=== PATIENT | female | born 1950 | race African-American/Black ===

== ENCOUNTER 2018-08-19 10:37 | Inpatient (IN) | payer OTHER, MEDICARE ==
[~2018-08-19] VITALS: Ht 160 cm; Wt 70.3 kg
[2018-08-19 10:52] VITALS: BP_SYST 167
[2018-08-19] MEDS ORDERED: NACL 0.9% 1,000 ML IV ONE (11:30)
[2018-08-19] MEDS ORDERED: KETOROLAC TROMETHAMINE 30 MG VIAL IVP ONE (11:30)
[2018-08-19 11:31] LABS: BASOPHILS # (AUTO) 0.1 K/uL (0.0-0.2); EOSINOPHILS # (AUTO) 0.2 K/uL (0.0-0.4); EOSINOPHILS % (AUTO) 1.6 % (0.0-4.0); HEMATOCRIT 36.3 % (36-48); HEMOGLOBIN 12.4 g/dL (12.0-16.0); LYMPHOCYTES # (AUTO) 1.8 K/uL (1.0-5.5); LYMPHOCYTES % (AUTO) 12.6 % (20.5-51.5); MEAN CORPUSCULAR HEMOGLOBIN 33 pg (27-31); MEAN CORPUSCULAR HGB CONC 34 % (32-36); MEAN CORPUSCULAR VOLUME 97 fL (79.0-98.0); MONOCYTES # (AUTO) 0.7 K/uL (0.0-1.0); MONOCYTES % (AUTO) 5.1 % (1.7-9.3); NEUTROPHILS # (AUTO) 11.1 K/uL (1.8-7.7); NEUTROPHILS % (AUTO) 79.7 % (40.0-70.0); PLATELET COUNT (AUTO) 516 K/uL (130-430); RED BLOOD CELL COUNT(AUTO) 3.73 MIL/uL (4.2-6.2); RED CELL DISTRIBUTION WIDTH 11.4 % (9.0-15.0); WHITE BLOOD COUNT (AUTO) 13.9 K/uL (4.8-10.8)
[2018-08-19 11:39] LABS: CALCIUM 9.5 mg/dL (8.4-11.0); CREATININE 0.84 mg/dL (0.55-1.30); POTASSIUM 3.2 mmol/L (3.5-5.1)
[2018-08-19 11:44] LABS: BILIRUBIN,URINE NEGATIVE (NEGATIVE); CLARITY/URINE SL HAZY (CLEAR); COLOR,URINE YELLOW (YELLOW); GLUCOSE,URINE NEGATIVE (NEGATIVE); KETONES,URINE NEGATIVE (NEGATIVE); LEUKOCYTE ESTERASE ,URINE NEGATIVE (NEGATIVE); NITRITE, URINE NEGATIVE (NEGATIVE); PROTEIN URINE TRACE (NEGATIVE); UROBILINOGEN,URINE 0.2 (0.2-1.0)
[2018-08-19 11:45] LABS: ALBUMIN 2.8 g/dL (3.4-4.8); TOTAL BILIRUBIN 0.3 mg/dL (0.0-1.0)
[2018-08-19 11:57] LABS: BLOOD, URINE TRACE (NEGATIVE)
[2018-08-19 12:15] LABS: BACTERIA,URINE FEW /HPF (None Seen); WBC,URINE 0-3 /HPF (0-3)
[2018-08-19] MEDS ORDERED: MORPHINE 4 MG/ML INJ. SYRINGE IVP ONE ×2 (12:15→13:45)
[2018-08-19 12:16] LABS: INR 0.9 (0.8-1.2); PROTHROMBIN TIME 9.6 SECS (9.5-12.5)
[2018-08-19] MEDS ORDERED: ONDANSETRON HCL 4 MG/2 ML VIAL ONE (12:29)
[2018-08-19] MEDS ORDERED: hydrALAZINE HCL 20 MG/ML VIAL IVP ONE (12:30)
[2018-08-19] MEDS ORDERED: ONDANSETRON HCL 4 MG/2 ML VIAL IVP ONE ×2 (12:30→13:45)
[2018-08-19] MEDS ORDERED: LIDOCAINE 1%, 20 ML MDV 20 ML ONE (12:32)
[2018-08-19] MEDS ORDERED: PHEDM120 PO (12:51)
[2018-08-19] MEDS ORDERED: ACYCLOVIR IV 500 MG in D5W 100 ML IV ONE (13:45)
[2018-08-19] MEDS ORDERED: VANCOMYCIN HCL 1,000 MG in NS 250 ML IV ONE (13:45)
[2018-08-19] MEDS ORDERED: AMPICILLIN SODIUM 1 GM VIAL IV ONE (13:45)
[2018-08-19] MEDS ORDERED: cefTRIAXone 1 GM in D5W 50 ML IV ONE (13:45)
[2018-08-19] MEDS ORDERED: VANCOMYCIN HCL 1000 MG/VIAL IV ONE (13:52)
[2018-08-19] MEDS ORDERED: cefTRIAXone 1 GM VIAL ONE (13:52)
[2018-08-19] MEDS ORDERED: ACYCLOVIR SODIUM 50 MG/ML VIAL IV ONE (13:53)
[2018-08-19] MEDS ORDERED: DEXAMETHASONE SOD PHOSPHATE 10 MG/ML VIAL IVP ONE (14:15)
[2018-08-19] MEDS ORDERED: cefTRIAXone 1 GM in D5W 50 ML IV SCH (15:00)
[2018-08-19 15:08] VITALS: BP_SYST 179
[2018-08-19 15:19] VITALS: BP_SYST 205
[2018-08-19 15:26] LABS: CSF GLUCOSE 61 mg/dL (40-70)
[2018-08-19 15:48] LABS: CSF PROTEIN 41 mg/dL (15-45)
[2018-08-19] MEDS ORDERED: hydrALAZINE HCL 20 MG/ML VIAL ONE (16:23)
[2018-08-19] MEDS: NACL 0.9% 1,000 ML IV SCH ×2 (16:26→23:09)
[2018-08-19 17:03] LABS: CSF APPEARANCE CLEAR (CLEAR); CSF COLOR COLORLESS (COLORLESS); CSF RED BLOOD CELL COUNT 43 /uL (0-0); CSF TUBE NUMBER 3; CSF VOLUME 7.5 mL
[2018-08-19 17:04] LABS: CSF WHITE BLOOD CELL COUNT 1 /uL (0-5)
[2018-08-19 17:55] VITALS: BP_SYST 166
[2018-08-19] MEDS ORDERED: AMPICILLIN SODIUM 1 GM in NS 50 ML IV SCH (18:00)
[2018-08-19] MEDS ORDERED: KCL 10 mEq in 50 mL (PREMIX) 50 ML IV ONE (18:15)
[2018-08-19 20:00] VITALS: BP_SYST 152
[2018-08-19] MEDS: DOXYCYCLINE HYCLATE 100 MG CAPSULE PO SCH (20:59)
[2018-08-19] MEDS ORDERED: ONDANSETRON HCL 4 MG/2 ML VIAL IVP PRN (22:30)
[2018-08-19] MEDS ORDERED: VANCOMYCIN HCL 1,500 MG in NS 250 ML IV SCH (23:00)
[2018-08-19] MEDS: hydrALAZINE HCL 20 MG/ML VIAL IVP PRN (23:23)
[2018-08-19] MEDS: traMADol HCL HCL 50 MG TABLET (ULTRAM) PO PRN (23:24)
[2018-08-20 00:47] VITALS: BP_SYST 168
[2018-08-20 06:45] VITALS: BP_SYST 188
[2018-08-20] MEDS: hydrALAZINE HCL 20 MG/ML VIAL IVP PRN ×2 (06:45→21:44)
[2018-08-20 07:38] LABS: ALBUMIN 2.3 g/dL (3.4-4.8); CALCIUM 9.4 mg/dL (8.4-11.0); CREATININE 0.78 mg/dL (0.55-1.30); POTASSIUM 3.5 mmol/L (3.5-5.1); TOTAL BILIRUBIN 0.1 mg/dL (0.0-1.0)
[2018-08-20 07:58] LABS: BASOPHILS # (AUTO) 0.1 K/uL (0.0-0.2); BASOPHILS % (AUTO) 0.7 % (0.0-2.0); EOSINOPHILS % (AUTO) 0.1 % (0.0-4.0); HEMATOCRIT 32.8 % (36-48); HEMOGLOBIN 11.7 g/dL (12.0-16.0); LYMPHOCYTES # (AUTO) 1.5 K/uL (1.0-5.5); LYMPHOCYTES % (AUTO) 8.5 % (20.5-51.5); MEAN CORPUSCULAR HEMOGLOBIN 36 pg (27-31); MEAN CORPUSCULAR HGB CONC 36 % (32-36); MEAN CORPUSCULAR VOLUME 100 fL (79.0-98.0); MONOCYTES # (AUTO) 0.6 K/uL (0.0-1.0); MONOCYTES % (AUTO) 3.5 % (1.7-9.3); NEUTROPHILS # (AUTO) 15.7 K/uL (1.8-7.7); NEUTROPHILS % (AUTO) 87.2 % (40.0-70.0); PLATELET COUNT (AUTO) 489 K/uL (130-430); RED BLOOD CELL COUNT(AUTO) 3.29 MIL/uL (4.2-6.2); RED CELL DISTRIBUTION WIDTH 11.5 % (9.0-15.0)
[2018-08-20 08:00] VITALS: BP_SYST 163
[2018-08-20 08:00] LABS: WHITE BLOOD COUNT (AUTO) 17.9 K/uL (4.8-10.8)
[2018-08-20] MEDS: BENAZEPRIL HCL 20 MG TABLET (LOTENSIN) PO SCH (08:11)
[2018-08-20] MEDS: DOXYCYCLINE HYCLATE 100 MG CAPSULE PO SCH ×2 (08:11→21:44)
[2018-08-20] MEDS ORDERED: FLUTICASONE 100 mCg/SALMETEROL 50 mCg DISKUS W.DEV INH SCH (09:00)
[2018-08-20] MEDS: ALBUTEROL SULFATE 0.083% 2.5 MG/3 ML VIAL.NEB INH PRN ×2 (09:17→16:21)
[2018-08-20] MEDS: NACL 0.9% 1,000 ML IV SCH (11:07)
[2018-08-20 11:25] VITALS: BP_SYST 157
[2018-08-20] MEDS: PROMETHAZINE 6.25 MG/ CODEINE 10 MG/ 5 ML PO PRN ×2 (13:01→22:19)
[2018-08-20] MEDS: VANCOMYCIN HCL 1 GM/NS PREMIX 250 ML IV SCH (13:01)
[2018-08-20 15:39] VITALS: BP_SYST 142
[2018-08-20] MEDS: traMADol HCL HCL 50 MG TABLET (ULTRAM) PO PRN ×2 (16:13→21:45)
[2018-08-20 20:00] VITALS: BP_SYST 183
[2018-08-21] VITALS: BP_SYST 162
[2018-08-21] MEDS: VANCOMYCIN HCL 1 GM/NS PREMIX 250 ML IV SCH (01:29)
[2018-08-21] MEDS: NACL 0.9% 1,000 ML IV SCH ×2 (01:30→06:15)
[2018-08-21] MEDS: PROMETHAZINE 6.25 MG/ CODEINE 10 MG/ 5 ML PO PRN ×3 (02:54→12:19)
[2018-08-21 07:56] VITALS: BP_SYST 162
[2018-08-21] MEDS: traMADol HCL HCL 50 MG TABLET (ULTRAM) PO PRN (07:59)
[2018-08-21] MEDS: BENAZEPRIL HCL 20 MG TABLET (LOTENSIN) PO SCH (07:59)
[2018-08-21] MEDS: DOXYCYCLINE HYCLATE 100 MG CAPSULE PO SCH (07:59)
[2018-08-21 10:26] VITALS: BP_SYST 166
[2018-08-21 12:00] VITALS: BP_SYST 167
[2018-08-21] MEDS: hydrALAZINE HCL 20 MG/ML VIAL IVP PRN (12:21)
[2018-08-21] MEDS ORDERED: HYDR-4037 PO (12:46)
[2018-08-21] MEDS ORDERED: ROCPM1 IV (12:47)
[2018-08-21] MEDS ORDERED: DOXY100C PO (12:47)
[2018-08-26 22:23] LABS: MYCOPLASMA PNEUMONIAE IgM <770 U/mL (0-769)
[2018-08-27 11:06] LABS: VDRL, CSF Non Reactive (Non Rea:<1:1)
== END 2018-08-21 13:36 | disposition home health service (06) | DRG 194 ==
LOC: SED 10:37 → SMU 14:05
PROVIDERS: ADMIT Family Medicine; ATTEND Family Medicine
PROC: 009U3ZX Drainage of Spinal Canal, Percutaneous Approach, Diagnostic (ICD-10-PCS; principal; 2018-08-19)
DX: J18.1 Lobar pneumonia, unspecified organism (principal); R29.1 Meningismus; R65.10 Systemic inflammatory response syndrome (SIRS) of non-infectious origin without acute organ dysfunction; J12.9 Viral pneumonia, unspecified; I10 Essential (primary) hypertension; J45.909 Unspecified asthma, uncomplicated; E87.6 Hypokalemia
CPT/HCPCS: 36415; 70450-TC; 71046-TC; 80053; 81000-TC; 82947-TC; 83605; 84157-TC; 85025; 85048; 85610-TC; 85730-TC; 86592; 86635; 86694; 86710; 86738; 86788; 86789; 87040-TC; 87070-TC; 87086; 87205-TC; 87899; 89051-TC; 94640; 94760; 96361; 96365; 96367; 96375; 99285; J0133; J0290; J0360; J0696; J1100; J1885; J2001; J2270; J2405; J3370; J3480; J7030; J7050; J7060; J7613